=== PATIENT | female | born 1945 ===

== ENCOUNTER 2018-04-15 09:52 | Outpatient (CLI) | payer OTHER ==
[~2018-04-15 09:52] MED LIST: AMARYL PO; ATACAND32 MG PO; PLAVIX75 MG PO; SYNTHROID50 MCG PO
== END 2018-04-15 16:41 | disposition home or self-care (01) ==
LOC: RAD 09:52
DX: M12.842 Other specific arthropathies, not elsewhere classified, left hand (principal); M19.042 Primary osteoarthritis, left hand

== ENCOUNTER 2019-09-19 11:32 | Outpatient (CLI) | payer OTHER | END 2019-09-19 11:40 | disposition home or self-care (01) | LOC: LAB 11:32 | DX: D64.0 Hereditary sideroblastic anemia (principal); J11.1 Influenza due to unidentified influenza virus with other respiratory manifestations ==